=== PATIENT | female | born 1995 | race Caucasian/White ===

== ENCOUNTER 2018-09-07 16:02 | Emergency (ER) | payer OTHER, MEDICAID ==
[2018-09-07] MEDS ORDERED: NS 1,000 ML IV ONE ×2 (16:56)
[2018-09-07] MEDS ORDERED: PANTOPRAZOLE SODIUM 40 MG VIAL IVP ONE (16:56)
--- NOTE | 2018-09-07 16:59 | EDPHY ---
H & P Stated Complaint: VOMITED LG AMT BLACK LIQUID/ UPPER ABD PAIN Time Seen by Provider: 09/07/18 16:56 HPI/ROS: HPI: This is a 22-year-old female who presents with Chief Complaint: VOMITED LG AMT BLACK LIQUID/ UPPER ABD PAIN Location: Epigastric Quality: Burning sharp pain Duration: Since this morning Signs and Symptoms: no fever, + nausea, + vomiting, no hematemesis, no blood in stool, no abdominal bloating, no diarrhea, no back pain, no urinary symptoms, no vaginal bleeding/discharge, no indigestion, no chest pain, no shortness of breath Timing: Acute, resolved Severity: Moderate Context: Patient reports that she woke up around 6:00 a.m. This morning and felt nauseous. She was able to go back to sleep for several hours and then woke up again feeling nauseous. She ate some yogurt from breakfast and then immediately vomited a dark black liquid. She went to work today without any difficulty and has had no further episodes of vomiting. She reports that she has celiac disease as well as GERD and every time she eats her stomach hurts-at her baseline. Reports that she takes her Protonix 40 mg every morning. EGD/ colonoscopy performed by [facility] in 2014. Per patient, stomach was "raw." She drank wine last night and has been taking ibuprofen pretty consistently since her wisdom teeth removal in the beginning of August. Denies any fever, urinary symptoms, blood in stool, diarrhea, back pain. Modifying Factors: Protonix Comment: ROS: A comprehensive 10 system review of systems is otherwise negative aside from elements mentioned in the history of present illness. MEDICAL/SURGICAL/SOCIAL HISTORY: Medical history: GERD, celiac disease. Has an IUD and does not have regular menses. LMP over 28 days ago. Surgical history: Denies Social history: Never smoked. Family history noncontributory. CONSTITUTIONAL: Extremely well-appearing young adult white female, awake and alert, no obvious distress HEENT: Atraumatic and normocephalic, PERRL, EOMI. Nares patent; no rhinorrhea; no nasal mucosal edema. Tympanic membranes clear. Oropharynx clear, no exudate and dry oral mucosa. Airway patent. No lymphadenopathy. No meningismus. Cardiovascular: Normal S1/S2, regular rate, regular rhythm, without murmur rub or gallop. PULMONARY/CHEST: Symmetrical and nontender. Clear to auscultation bilaterally. Good air movement. No accessory muscle usage. ABDOMEN: Soft, nondistended, mild epigastric tenderness, no rebound, no guarding, no peritoneal signs, no masses or organomegaly. No CVAT. EXTREMITIES: 2/2 pulses, strength 5/5, no deformities, no clubbing, no cyanosis or edema. NEUROLOGICAL: no focal neuro deficits. GCS 15. SKIN: Warm and dry, no erythema. no rash. Good capillary refill. Source: Patient Exam Limitations: No limitations - Personal History LMP (Females 10-55): Over 28 Days Ago Current Tetanus Diphtheria and Acellular Pertussis (TDAP): Yes - Medical/Surgical History Hx Asthma: No Hx Chronic Respiratory Disease: No Hx Diabetes: No Hx Cardiac Disease: No Hx Renal Disease: No Hx Cirrhosis: No Hx Alcoholism: No Hx HIV/AIDS: No Hx Splenectomy or Spleen Trauma: No Other PMH: GERD CELIAC - Social History Smoking Status: Never smoked Constitutional: Initial Vital Signs Temperature (C) 36.8 C 09/07/18 16:14 Heart Rate 84 09/07/18 16:14 Respiratory Rate 16 09/07/18 16:14 Blood Pressure 120/68 09/07/18 16:14 O2 Sat (%) 98 09/07/18 16:14 O2 Delivery Mode Room Air Allergies/Adverse Reactions: gluten Allergy (Verified 09/07/18 16:13) Home Medications: Medication Instructions Recorded Hydroxyzine HCl 09/07/18 Lamotrigine 09/07/18 Ondansetron Odt [Zofran Odt 4 mg 4 mg PO Q4 PRN #12 tab 09/07/18 (*)] Pantoprazole Sodium 09/07/18 Pantoprazole Sodium [Protonix 40mg 40 mg PO BID 7 Days #14 tab 09/07/18 (*)] Sucralfate [Carafate 1 GM (*)] 1 gm PO ACHS 7 Days #28 tab 09/07/18 Medical Decision Making ED Course/Re-evaluation: Vital signs reviewed and stable upon arrival. No systemic signs. IV access, laboratory studies ordered Patient given 2 L normal saline, IV Protonix 80 mg, IV Zofran 4 mg and GI cocktail with adequate relief of pain I suspect this is GERD versus gastritis-NSAID versus alcohol-induced. 1729: Laboratory studies reviewed. No signs of leukocytosis/anemia/platelet dysfunction/BANDAR/elevated LFTs/electrolyte imbalance/pancreatitis// coagulopathy. 1820: Started p.o. Trial. Reassessed patient who reports complete relief of discomfort. Asking for doctor's note to be out of work until Tuesday. I doubt an acute/surgical abdomen as abdomen is now soft and nontender. No need for imaging at this time. Increased Protonix to 40 mg twice daily x7 days and added Carafate x7 days with gastroenterology follow-up. This patient was seen under the supervision of my secondary supervising physician. I evaluated and cared for this patient with attending. Differential Diagnosis: Abdominal pain including but not limited to appendicitis, cholecystitis, gastritis and urinary tract infection. - Data Points Laboratory Results: Laboratory Results 09/07/18 17:00 09/07/18 17:00 09/07/18 09/07/18 09/07/18 17:00 17:00 17:00 WBC RBC Hgb Hct MCV MCH MCHC RDW Plt Count MPV Neut % (Auto) Lymph % (Auto) [place] % (Auto) Eos % (Auto) Baso % (Auto) Nucleat RBC Rel Count Absolute Neuts (auto) Absolute Lymphs (auto) Absolute Monos (auto) Absolute Eos (auto) Absolute Basos (auto) Absolute Nucleated RBC Immature Gran % Immature Gran # PT 13.4 SEC SEC (12.0-15.0) INR 1.06 (0.83-1.16) APTT 23.3 SEC SEC (23.0-38.0) Sodium 135 mEq/L mEq/L (135-145) Potassium 4.0 mEq/L mEq/L (3.5-5.2) Chloride 101 mEq/L mEq/L (97-110) Carbon Dioxide 26 mEq/l mEq/l (22-31) Anion Gap 8 mEq/L mEq/L (6-14) BUN 8 mg/dL mg/dL (7-23) Creatinine 0.6 mg/dL mg/dL (0.6-1.0) Estimated GFR > 60 Glucose 88 mg/dL mg/dL (70-100) Calcium 9.8 mg/dL mg/dL (8.5-10.4) Total Bilirubin 0.6 mg/dL mg/dL (0.1-1.4) Conjugated Bilirubin 0.2 mg/dL mg/dL (0.0-0.5) Unconjugated Bilirubin 0.4 mg/dL mg/dL (0.0-1.1) AST 30 IU/L IU/L (14-46) ALT 21 IU/L IU/L (9-52) Alkaline Phosphatase 45 IU/L IU/L (38-126) Total Protein 6.9 g/dL g/dL (6.3-8.2) Albumin 4.4 g/dL g/dL (3.5-5.0) Lipase 62 IU/L IU/L (23-300) Beta HCG, Qual NEGATIVE 09/07/18 17:00 WBC 5.50 10^3/uL 10^3/uL (3.80-9.50) RBC 4.48 10^6/uL 10^6/uL (4.18-5.33) Hgb 14.0 g/dL g/dL (12.6-16.3) Hct 41.5 % % (38.0-47.0) MCV 92.6 fL fL (81.5-99.8) MCH 31.3 pg pg (27.9-34.1) MCHC 33.7 g/dL g/dL (32.4-36.7) RDW 13.2 % % (11.5-15.2) Plt Count 193 10^3/uL 10^3/uL (150-400) MPV 10.1 fL fL (8.7-11.7) Neut % (Auto) 67.8 % % (39.3-74.2) Lymph % (Auto) 25.5 % % (15.0-45.0) [place] % (Auto) 5.5 % % (4.5-13.0) Eos % (Auto) 0.5 % L % (0.6-7.6) Baso % (Auto) 0.5 % % (0.3-1.7) Nucleat RBC Rel Count 0.0 % % (0.0-0.2) Absolute Neuts (auto) 3.73 10^3/uL 10^3/uL (1.70-6.50) Absolute Lymphs (auto) 1.40 10^3/uL 10^3/uL (1.00-3.00) Absolute Monos (auto) 0.30 10^3/uL 10^3/uL (0.30-0.80) Absolute Eos (auto) 0.03 10^3/uL 10^3/uL (0.03-0.40) Absolute Basos (auto) 0.03 10^3/uL 10^3/uL (0.02-0.10) Absolute Nucleated RBC 0.00 10^3/uL 10^3/uL (0-0.01) Immature Gran % 0.2 % % (0.0-1.1) Immature Gran # 0.01 10^3/uL 10^3/uL (0.00-0.10) PT INR APTT Sodium Potassium Chloride Carbon Dioxide Anion Gap BUN Creatinine Estimated GFR Glucose Calcium Total Bilirubin Conjugated Bilirubin Unconjugated Bilirubin AST ALT Alkaline Phosphatase Total Protein Albumin Lipase Beta HCG, Qual Medications Given: Discontinued Medications Al Hydroxide/Mg Hydroxide (Maalox Susp) 30 ml PO ONCE ONE Stop: 09/07/18 17:06 Last Admin: 09/07/18 17:24 Dose: 30 ml Hyoscyamine Sulfate (Levsin, Hyomax-Sl) 0.25 mg PO ONCE ONE Stop: 09/07/18 17:06 Last Admin: 09/07/18 17:24 Dose: 0.25 mg Sodium Chloride (Ns) 1,000 mls @ 0 mls/hr IV EDNOW ONE; Wide Open PRN Reason: Protocol Stop: 09/07/18 16:57 Last Admin: 09/07/18 17:24 Dose: 1,000 mls Sodium Chloride (Ns) 1,000 mls @ 0 mls/hr IV EDNOW ONE; Wide Open PRN Reason: Protocol Stop: 09/07/18 16:57 Last Admin: 09/07/18 17:30 Dose: 1,000 mls Lidocaine (Lidocaine 2% Viscous) 15 ml PO ONCE ONE Stop: 09/07/18 17:06 Last Admin: 09/07/18 17:24 Dose: 15 ml Ondansetron HCl (Zofran) 4 mg IVP EDNOW ONE Stop: 09/07/18 17:06 Last Admin: 09/07/18 17:24 Dose: 4 mg Pantoprazole Sodium (Protonix) 80 mg IVP EDNOW ONE Stop: 09/07/18 16:57 Last Admin: 09/07/18 17:24 Dose: 80 mg Departure - Departure Disposition: Home, Routine, Self-Care Clinical Impression: GERD (gastroesophageal reflux disease) Qualifiers: Esophagitis presence: esophagitis presence not specified Qualified Code(s): K21.9 - Gastro-esophageal reflux disease without esophagitis Gastritis Qualifiers: Gastritis type: unspecified gastritis Chronicity: acute Gastritis bleeding: without bleeding Qualified Code(s): K29.00 - Acute gastritis without bleeding Condition: Good Instructions: Diet for Stomach Ulcers and Gastritis (ED), Gastroesophageal Reflux Disease (ED) Additional Instructions: Consume a minimum of 8-10 glasses of water or electrolyte fluid replacement drinks that include Gatorade, Powerade, Pedialyte. Eat a bland diet for the next 48 hours and then slowly advance as tolerated to a GERD/gastritis/celiac diet. Increase Protonix to 40 mg twice daily for the next 7 days and then resume 40 mg every morning. Take Carafate 30 min before meals and at bedtime for the next 7 days. Take Zofran 1 tab every 4 hours as needed for nausea, vomiting. Please avoid alcohol use and any NSAIDs which include Aleve, ibuprofen, naproxen , Advil. Follow-up with [facility] in the next 5-7 days. Referrals: Gastroenterology [facility] [Provider Group] - 5-7 days, call for appt. Stand Alone Forms: Work Excuse Prescriptions: Ondansetron Odt [Zofran Odt 4 mg (*)] 4 mg PO Q4 PRN #12 tab PRN Reason: Nausea/Vomiting, Use 1st Pantoprazole Sodium [Protonix 40mg (*)] 40 mg PO BID 7 Days #14 tab Sucralfate [Carafate 1 GM (*)] 1 gm PO ACHS 7 Days #28 tab
[2018-09-07] MEDS ORDERED: HYOSCYAMINE SULFATE 0.125 MG TAB PO ONE (17:05)
[2018-09-07] MEDS ORDERED: MAG HYDROX/AL HYDROX/SIMETH 30 ML UDCUP PO ONE (17:05)
[2018-09-07] MEDS ORDERED: ONDANSETRON 4 MG/2 ML VIAL IVP ONE (17:05)
[2018-09-07] MEDS ORDERED: LIDOCAINE 2% VISCOUS 15 ML UDCUP PO ONE (17:05)
[2018-09-07 17:12] LABS: PLATELET COUNT 193 10^3/uL (150-400)
[2018-09-07 17:24] LABS: INR 1.06 (0.83-1.16); PROTIME(PATIENT) 13.4 SEC (12.0-15.0)
[2018-09-07 18:57] VITALS: BP 107/69
== END 2018-09-07 19:12 | disposition home or self-care (01) ==
DX: K21.9 Gastro-esophageal reflux disease without esophagitis (principal); K29.00 Acute gastritis without bleeding; K90.0 Celiac disease; E86.9 Volume depletion, unspecified
CPT/HCPCS: 96374; J2405